=== PATIENT | male | born 1970 | race Caucasian/White ===

== ENCOUNTER 2018-03-13 09:12 | Outpatient (CLI) | payer OTHER, SELFPAY ==
[2018-03-13 09:19] VITALS: BP 160/105; PULSE 84; RESP 18; TEMP 36.6; O2SAT 100
--- NOTE | 2018-03-13 10:12 | PDOC.PAIN ---
Pain Clinic Procedure Note Current Active Problems Problem Status Onset Lumbar radiculopathy Acute Lumbar Epidural Steroid Injection Procedure Note COMMENTS: I reviewed the [facility] note from Dr. Rai and the patient's most recent lumbar spine MRI. Dr. Rai requested a left-sided L2-L3 lumbar epidural steroid injection. This blood pressure is a little elevated today, but he did not take his blood pressure medication today and he denies any headache or dizziness. JONH HOLDER has been referred to the [facility] for lumbar epidural steroid injection. The patient was greeted by the nurse who verified patients name and . Patient was then taken to the fluoroscopy suite. The patient was interviewed and the medial record reviewed. There were no medical, pharmacologic, radiographic, or other structural contraindications to attempting fluoroscopically guided lumbar epidural steroid injection. Risks and expected side effects as well as potential benefits of the procedure were reviewed and voiced concerns expressed. The patient consent form was signed and witnessed. Standard patient time-out procedure was performed. The patient was placed in the prone position on the fluoroscopy table and automated blood pressure cuff and pulse oximeter applied. The skin entry point for entering/approaching the epidural space on the left side of the L2-L3 interspace and marked. Following thorough chlorhexadine preparation of the skin and draping and 1% lidocaine infiltration of the skin entry point and subcutaneous tissues, a 18 gauge Touhy needle was placed under fluoroscopic guidance and with loss of resistance technique into the epidural space. Needle tip placement and depth were aided and confirmed by fluoroscopy. There was no paresthesia or return of blood or CSF through the needle. 1 cc's of Omnipaque 240 was injected with clear epidural spread confirmed with fluoroscopy. 80mg depomedrol was injected. The needle was flushed with 1 cc of 1% preservative-free Lidocaine and the needle was removed. There was not any unusual discomfort expressed by JONH HOLDER. Patient's vital signs were stable throughout the procedure and were as recorded in nursing records. Follow up plans and appointments were discussed with patient. Post procedure instruction was given as documented in nursing records and having met discharge criteria and was discharged from the [facility]. COMMENTS: If this procedure is helpful, it can be completed up to 3 times per 12 months. He was pain-free at 5 minutes after the procedure.
--- NOTE | 2018-03-13 10:15 | DI.RAD_ITS ---
SYMPTOMS/DIAGNOSIS: LUMBAR RADICULOPATHY, LUMBAR EPIDURAL STEROID INJECTION C-ARM FLUOROSCOPY: Fluoroscopy Time: 35.9 Fluoroscopy was provided for guidance with lumbar spine pain clinic injection. Please see procedure note for details.
--- NOTE | 2018-03-13 10:16 | PDOC.PAIN_ITS ---
Pain Clinic Procedure Note Current Active Problems Problem Status Onset Lumbar radiculopathy Acute Lumbar Epidural Steroid Injection Procedure Note COMMENTS: I reviewed the [facility] [place] from Dr. Rai and the patient's most recent lumbar spine MRI. Dr. Rai requested a left-sided L2-L3 lumbar epidural steroid injection. This blood pressure is a little elevated today, but he did not take his blood pressure medication today and he denies any headache or dizziness. JONH HOLDER has been referred to the [facility] for lumbar epidural steroid injection. The patient was greeted by the nurse who verified patients name and . Patient was then taken to the fluoroscopy suite. The patient was interviewed and the medial record reviewed. There were no medical, pharmacologic, radiographic, or other structural contraindications to attempting fluoroscopically guided lumbar epidural steroid injection. Risks and expected side effects as well as potential benefits of the procedure were reviewed and voiced concerns expressed. The patient consent form was signed and witnessed. Standard patient time-out procedure was performed. The patient was placed in the prone position on the fluoroscopy table and automated blood pressure cuff and pulse oximeter applied. The skin entry point for entering/approaching the epidural space on the left side of the L2-L3 interspace and marked. Following thorough chlorhexadine preparation of the skin and draping and 1% lidocaine infiltration of the skin entry point and subcutaneous tissues, a 18 gauge Touhy needle was placed under fluoroscopic guidance and with loss of resistance technique into the epidural space. Needle tip placement and depth were aided and confirmed by fluoroscopy. There was no paresthesia or return of blood or CSF through the needle. 1 cc's of Omnipaque 240 was injected with clear epidural spread confirmed with fluoroscopy. 80mg depomedrol was injected. The needle was flushed with 1 cc of 1% preservative- free Lidocaine and the needle was removed. There was not any unusual discomfort expressed by JONH HOLDER. Patient's vital signs were stable throughout the procedure and were as recorded in nursing records. Follow up plans and appointments were discussed with patient. Post procedure instruction was given as documented in nursing records and having met discharge criteria and was discharged from the [facility]. COMMENTS: If this procedure is helpful, it can be completed up to 3 times per 12 months. He was pain-free at 5 minutes after the procedure.
[2018-03-13] MEDS: methylPREDNISolone ACETATE 80 MG/ML VIAL IM (10:23)
[2018-03-13] MEDS: Omnipaque 240 MG/ML 50 ML BTL IJ (10:23)
[2018-03-13 10:24] VITALS: BP 167/100; PULSE 74; RESP 20; O2SAT 99
== END 2018-03-13 09:32 ==
PROVIDERS: PCP Registered Nurse; Visit Provider Preventive Medicine Occupational Medicine
DX: M54.16 Radiculopathy, lumbar region (principal)
CPT/HCPCS: 62323; 72100; J1040; Q9967

== ENCOUNTER 2024-07-31 09:35 | Outpatient (CLI) | payer OTHER, SELFPAY ==
[2024-07-31 10:20] VITALS: BP 105/83; PULSE 63; RESP 18; TEMP 36.7; O2SAT 98
[2024-07-31 11:07] VITALS: PULSE 61; PULSE 62; RESP 12; O2SAT 99
[2024-07-31 11:08] VITALS: BP 139/91; PULSE 58; PULSE 65; RESP 19; O2SAT 99
[2024-07-31 11:10] VITALS: PULSE 54; RESP 21; O2SAT 98
[2024-07-31 11:15] VITALS: BP 136/87; PULSE 59; RESP 19; O2SAT 98
[2024-07-31] MEDS: Omnipaque 240 MG/ML 50 ML BTL IJ (11:20)
[2024-07-31] MEDS: Epidural Tray 1 EACH MC (11:20)
[2024-07-31] MEDS: methylPREDNISolone ACETATE 80 MG/ML VIAL IJ (11:20)
--- NOTE | 2024-07-31 11:25 | DI.RAD_ITS ---
Exam(s) XR PAIN CLINIC LUMBAR SP 2V EXAM: XR PAIN CLINIC LUMBAR SP 2V CLINICAL HISTORY: Dx: Lumbar Radiculopathy TECHNIQUE: 2D and realtime digital imaging was performed. CONTRAST MATERIAL: Refer to procedure report. COMPARISON: No exams were available for comparison FINDINGS: Fluoroscopy was provided for Dr. Tejada during the performance of a lumbar epidural steroid injection. Please refer to the procedure report for complete details. Ka,r=7.09 mGy IMPRESSION: RADIATION DOSE DELIVERED: 0.0 0.0 0
--- NOTE | 2024-07-31 12:56 | PDOC.PAIN_ITS ---
Date of service: 07/31/24 Time of Service: 12:00 Pain Managment Procedure Note Procedure Note Procedure Note: PROCEDURE NOTE LUMBAR EPIDURAL STEROID INJECTION Date of Service: July 31, 2024 Patient:JONH MENDOZA? Provider: Amrik Wei DO, MPH JONH HOLDER has been referred to the [facility] for a lumbar epidural steroid injection. Pre-operative diagnosis: Lumbosacral Radiculopathy ICD-10 M54.16 Post-operative diagnosis: Same Pre-Procedure Pain: VAS= 8 /10 Comments: He last had this procedure in 2019 and had 5+ years of pain relief. This pain has now returned to the low back and left leg as it was pre-injection. JONH was interviewed and the medical record was reviewed.? There were no medical, pharmacologic, radiographic or other structural contraindications to attempting fluoroscopically guided Lumbar epidural steroid injection.? Risks, potential side effects, indications, and potential benefits of the procedure were reviewed with JONH.? Questions and concerns were addressed.? After it was clear that JONH was fully informed about the procedure, the printed consent form was signed by the patient and myself.? JONH was placed in the prone position on the fluoroscopy table and automated blood pressure cuff and pulse oximeter applied. The skin entry point for entering/approaching the epidural space for the lumbar epidural steroid injection was marked. Following thorough chlorhexadine preparation of the skin and draping and 1% lidocaine infiltration of the skin entry point and subcutaneous tissues, an 18 gauge Touhy needle was placed and advanced under fluoroscopic guidance and with loss of resistance technique into the L2-L3 epidural space. Needle tip placement and depth were aided and confirmed by fluoroscopy. There was no paresthesia or return of blood or CSF through the needle. 1 mls of Omnipaque 240 was injected with clear epidural spread confirmed with fluoroscopy. 80 mg of Depo-Medrol was? injected. This was followed by 1 ml of preservative-free normal saline to flush the steroid out of the needle. There was no unusual discomfort expressed by JONH. The needle was withdrawn without difficulty. (49 mls of Omnipaque was wasted) JONH was observed and was without hemodynamic, neurologic, or allergic reactions.? Fluoroscopic images were digitally archived. JONH's vital signs were stable throughout the procedure and were as recorded in nursing records. Follow up plans and appointments were discussed with JONH. Post procedure instruction was given as documented in nursing records and having met discharge criteria JONH was discharged from the [facility]. COMMENTS: No apparent complications. Post-procedure pain: VAS= 2/10. BORJA to contact [facility] as needed. If at least 50% improvement in pain and/or function for at least 3 months is achieved, this procedure can be repeated. I personally performed this entire procedure. AMRIK WEI DO, MPH ABPMR-subspecialty board certification in Pain Medicine [facility] Coding Conscious Sedation used for procedure: No CPT Codes: Inj Spine L/S w/Imaging - [id number] ([id number] ~G) Additional Codes: Date of Service (52420) Date of service: 07/31/24
== END 2024-07-31 09:36 | disposition home or self-care (01) ==
LOC: PC 09:38
PROVIDERS: PCP Registered Nurse; Visit Provider Preventive Medicine Occupational Medicine
DX: M54.16 Radiculopathy, lumbar region (principal)
CPT/HCPCS: 62323; 72100; J1010; Q9967